=== PATIENT | female | born 1950 | race Caucasian/White ===

== ENCOUNTER 2016-09-28 06:36 | Inpatient (IN) | payer OTHER ==
[2016-09-27 13:38] VITALS: BMI 31.1
[2016-09-28] MEDS ORDERED: HEPARIN NA (PORCINE) 5,000 UNITS/ML 1ML VIAL ONE ×2 (07:29→10:06)
[2016-09-28] MEDS ORDERED: CEFAZOLIN 1 GM/D5W 50 ML IVPB ONE (08:16)
[2016-09-28] MEDS ORDERED: MIDAZOLAM HCL 2 MG/2 ML SINGLE DOSE VIAL ONE (08:17)
[2016-09-28] MEDS ORDERED: DESFLURANE GAS 240 ML BOTTLE IH ONE (08:27)
--- NOTE | 2016-09-28 08:27 | HP ---
Admitting History and Physical - Admission Chief Complaint: Left carotid stenosis History of Present Illness: 66 year old female with left carotid stenosis >80% by Duplex and CTA. No history of stroke TIA or TMB. Right carotid has no significant stenosis. History Source: Patient, Medical Record Limitations to Obtaining History: No Limitations - Past Medical History Cardiovascular: Yes: CAD, HTN, Hyperlipdemia ...: No - Smoking History Smoking history: Current every day smoker Aproximately how many cigarettes per day: 10 - Alcohol/Substance Use Hx Alcohol Use: No Home Medications - Allergies Allergies/Adverse Reactions: Allergies Allergy/AdvReac Type Severity Reaction Status Date / Time No Known Drug Allergies Allergy Verified 09/27/16 13:38 - Home Medications Home Medications: Ambulatory Orders Aspirin [Aspirin EC] 81 mg PO DAILY 09/27/16 Atorvastatin Ca [Lipitor] 20 mg PO DAILY 09/27/16 Metoprolol Succinate [Toprol Xl -] 25 mg PO DAILY 09/27/16 Family Disease History - Family Disease History Family History: Unremarkable Physical Examination Vital Signs: Vital Signs Temperature 97.9 F 09/28/16 07:13 Pulse Rate 67 09/28/16 07:13 Respiratory Rate 18 09/28/16 07:13 Blood Pressure 137/76 09/28/16 07:13 O2 Sat by Pulse Oximetry (%) 97 09/28/16 07:13 Constitutional: Yes: No Distress Eyes: Yes: EOM Intact HENT: Yes: WNL, Atraumatic Neck: Yes: Supple Cardiovascular: Yes: Regular Rate and Rhythm Respiratory: Yes: Regular Gastrointestinal: Yes: Normal Bowel Sounds, Soft Musculoskeletal: Yes: WNL Extremities: Yes: WNL Neurological: Yes: WNL, Alert, Oriented Problem List - Problems (1) Carotid stenosis, left Assessment/Plan: Asymptomatic left ICA stenosis, severe. After discussion of risks of stroke associated with carotid stenosis with patient and family, decision to proceed with carotid endarterectomy was made. Preop medical and cardiology clearance obtained. Code(s): I65.22 - OCCLUSION AND STENOSIS OF LEFT CAROTID ARTERY
[2016-09-28] MEDS ORDERED: PROPOFOL 20 ML ONE ×2 (08:36)
[2016-09-28] MEDS ORDERED: ROCURONIUM BROMIDE 50 MG/5 ML VIAL ONE (08:37)
[2016-09-28] MEDS ORDERED: ceFAZolin SODIUM 1 GM VIAL IVPB ONE (09:00)
[2016-09-28] MEDS ORDERED: HEPARIN NA (PORCINE) 5,000 UNITS/ML 1ML VIAL SQ ONE (09:15)
[2016-09-28] MEDS ORDERED: ENOXAPARIN NA (PORCINE) 40 MG/0.4 ML DISP.SYRIN SQ SCH (10:00)
[2016-09-28] MEDS ORDERED: ETOMIDATE 20 MG/10 ML AMPUL IVPUSH ONE (10:06)
[2016-09-28] MEDS ORDERED: LIDOCAINE HCL 2% (20ML MULTI-DOSE VIAL) NR ONE (10:06)
[2016-09-28] MEDS ORDERED: POVIDONE-IODINE OINTMENT 10% - 28.4 GM TUBE ONE (10:07)
[2016-09-28] MEDS ORDERED: NEOSTIGMINE METHYLSULFATE 0.5 MG/ML - 10 ML MDV ONE (10:27)
[2016-09-28] MEDS ORDERED: GLYCOPYRROLATE 0.2 MG/1 ML VIAL ONE (10:28)
[2016-09-28] MEDS ORDERED: PROTAMINE SULFATE 50 MG/5 ML VIAL ONE (10:30)
[2016-09-28] MEDS ORDERED: HYDROmorphone HCL CARPU-JECT 1 MG/1 ML DISP.SYRIN IVPB PRN (10:49)
[2016-09-28] MEDS ORDERED: HYDROmorphone HCL CARPU-JECT 2 MG/1 ML DISP.SYRIN IVPB PRN (10:49)
--- NOTE | 2016-09-28 10:52 | OP ---
Operative Note - Note: Operative Date: 09/28/16 Pre-Operative Diagnosis: Left carotid stenosis Operation: Left carotid endarterectomy Findings: Severe stenosis at origin left ICA > 80% Implants: Thin Dacron collagen patch Post-Operative Diagnosis: Same as Pre-op Surgeon: David Anna Corporate Responsibility Officer: Kyra Metzger Anesthesiologist/VACUUM CONDITIONER OPERATOR: Ami Puentes MD Anesthesia: General Specimens Removed: Left carotid plaque Estimated Blood Loss (mls): 50 Operative Report Dictated: Yes
[2016-09-28] MEDS ORDERED: ONDANSETRON 4 MG/2 ML VIAL ONE (10:54)
[2016-09-28] MEDS ORDERED: D5-1/2NS+20 MEQ KCL - 1,000 ML IV SCH (11:00)
--- NOTE | 2016-09-28 11:07 | SURG ---
Surgery Delivery Professional Note Delivery Professional: Kyra Metzger PA-C Date of Service: 09/28/16 Diagnosis: Left carotid stenosis Procedure: Left carotid endarterectomy I was present for the entirety of the operative procedure. For further detail, please refer to operative report. Visit type - Case Type Case Type: Scheduled Admission - New patient This patient is new to me today: Yes Date on this admission: 09/28/16
[2016-09-28] MEDS ORDERED: ONDANSETRON 4 MG/2 ML VIAL IVPUSH PRN (11:15)
[2016-09-28] MEDS ORDERED: LACTATED RINGERS SOLUTION 1,000 ML IV SCH (11:15)
--- NOTE | 2016-09-28 15:12 | OP ---
DATE OF OPERATION: 09/28/2016 SURGEON: David Anna MD DIRECTOR OF RECRUITMENT: JUDITH Rodriguez PROCEDURE: Left carotid endarterectomy. PREOPERATIVE DIAGNOSIS: Left carotid stenosis. POSTOPERATIVE DIAGNOSIS: Left carotid stenosis. ANESTHESIA: General. ANESTHESIOLOGIST: Ami Puentes MD OPERATIVE FINDINGS: There was severe stenosis at the origin of the left internal carotid artery with hemorrhagic plaque. DESCRIPTION OF PROCEDURE: Following routine patient identification with site and side verification, general anesthesia was induced. The left neck and chest were prepped with ChloraPrep. Time-out was performed. An incision was made along the anterior border of the left sternocleidomastoid over the carotid bifurcation, which had been mapped preoperatively with duplex imaging. The subcutaneous tissues and platysma muscle were divided with cautery. The external jugular vein was ligated between Vicryl ties and divided. The anterior border of the sternocleidomastoid was freed with cautery, and the muscle was retracted laterally. The internal jugular vein was dissected along its anterior border. Side branches were ligated with silk ties and divided. The vein was retracted laterally. The common carotid artery was mobilized at the base of the incision and secured with an umbilical tape. Distal dissection allowed identification of the carotid bifurcation. The external carotid was mobilized and secured with a vessel loop. The superior thyroid branch was individually secured. The hypoglossal nerve was identified and carefully protected. Crossing vessels were ligated with silk ties and divided. The nerve was reflected superiorly. The internal carotid was then exposed to a point distal to atherosclerotic plaque. The patient was systemically heparinized. The distal internal carotid was then secured with a vessel loop. Common internal and external branches were then occluded with vascular clamp and vessel loops. The was placed on the distal internal carotid artery. Arteriotomy was made from the common extending to the internal to a point distal to the atherosclerotic disease. Back bleeding from the distal internal carotid artery was pulsatile, and no shunt was employed. Endarterectomy was then performed with removal of plaque from the common internal and external branches. Loose media fibers were removed. The distal intima was adherent and required no tacking sutures. The arteriotomy was then closed with a thin, collagen-coated Dacron patch, which was sutured to the arterial page with running 6-0 Prolene suture. Prior to completion of the suture line, the arteries were allowed to back bleed and flush, and the lumen was filled with heparin solution. Suture line was completed and then flow was restored first to the external and then the internal carotid artery. Bleeding from the suture line was controlled with Surgicel, and the patient received protamine intravenously. Evaluation with the handheld Doppler revealed good flow in all branches with no evidence of technical defects. When hemostasis was achieved, the wound was irrigated and closed with interrupted sutures of 3-0 Vicryl in the platysma layer and skin edenilson. A sterile dressing was applied, and the patient was awakened from anesthesia and found to be in intact neurologic condition. She was transported to the recovery room. DAVID ANNA M.D. [id number]
--- NOTE | 2016-09-28 17:13 | SPA.POSTOP ---
- POST-OP NOTE POD #0 s/p Left CEA Patient resting comfortably. Pain management via prn meds. Denies n/v/f/c, CP or SOB. Last Vital Signs Temp Pulse Resp BP Pulse Ox 98 F 73 16 114/65 96 09/28/16 16:00 09/28/16 16:00 09/28/16 16:00 09/28/16 16:00 09/28/16 15:00 Physical Exam General: No acute distress. NECK: dressing c/d/i, no evidence of hematoma. Supple and soft. 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
[2016-09-28] MEDS: CEFAZOLIN (PRE-DOCKED) 50 ML IVPB SCH (17:42)
[2016-09-28] MEDS ORDERED: PNEUMOCOCCAL 23 VACCINE 0.5 ML VIAL IM ONE (18:00)
[2016-09-29] MEDS: CEFAZOLIN (PRE-DOCKED) 50 ML IVPB SCH (03:00)
[2016-09-29] MEDS ORDERED: CEFAZOLIN (PRE-DOCKED) 50 ML IVPB ONE (06:04)
[2016-09-29 06:28] LABS: MCH 30.5 pg (25.7-33.7); MCHC 32.8 g/dl (32.0-36.0); MEAN CELL VOLUME 92.8 fl (80-96); MEAN PLT VOLUME 9.3 fl (7.5-11.1); PLATELET COUNT 251 K/MM3 (134-434); RDW 13.7 % (11.6-15.6); WHITE BLOOD COUNT 11.9 K/mm3 (4.0-10.0)
[2016-09-29 06:47] LABS: CALCIUM 8.7 mg/dL (8.5-10.1); COCKROFT - GAULT 138.363; CREATININE 0.5 mg/dL (0.55-1.02)
[2016-09-29] MEDS ORDERED: PNEUMOC 13-VAL CONJ-DIP CRM/PF 0.5 ML DISP.SYRIN IM ONE (07:11)
--- NOTE | 2016-09-29 08:35 | PN ---
Progress Note (short form) - Note Progress Note: POD 1 VSS Neck dry, no swelling Stable neuro exam OK for discharge today. ASA/Plavix Office 1 week. <David Anna - Last Filed: 09/29/16 09:04> - Note Progress Note: Vascular Surgery- Dr. Anna Patient seen and examined. Patient is doing well, admits some pain in neck, but pain is controlled. She has been tolerating her diet and urinating without issue. Denies fever, chills, nausea, vomiting, CP, SOB. Last Vital Signs Temp Pulse Resp BP Pulse Ox 98.2 F 57 L 15 131/57 100 09/29/16 06:00 09/29/16 06:00 09/29/16 06:00 09/29/16 06:00 09/28/16 21:00 CBC, BMP 09/29/16 05:20 09/29/16 05:20 Exam: Gen: NAD Neck: Soft, clean, dry, intact, no evidence of hematoma Neuro: UE strength, movement equal bilat., tongue midline <Kyra Metzger - Last Filed: 09/29/16 12:10> Problem List - Problems (1) Carotid stenosis, left Code(s): I65.22 - OCCLUSION AND STENOSIS OF LEFT CAROTID ARTERY <David Anna - Last Filed: 09/29/16 09:04> - Problems (1) Carotid stenosis, left Assessment/Plan: POD#1 s/p left carotid endarterectomy Pain controlled Regular diet Discharge home today Keep wound clean and dry, may shower Monday Follow-up with Dr. Anna next week May use Tylenol as needed for pain Continue ASA/Plavix Code(s): I65.22 - OCCLUSION AND STENOSIS OF LEFT CAROTID ARTERY <Kyra Metzger - Last Filed: 09/29/16 12:10>
[2016-09-29 09:44] VITALS: BP 128/54
[2016-09-29 09:46] VITALS: PULSE 60; TEMP 98.8
[2016-09-29] MEDS ORDERED: CLOPIDOGREL BISULFATE 75 MG TABLET (FP) PO SCH (10:00)
[2016-09-29] MEDS ORDERED: ASPIRIN COATED 81 MG TABLET.EC PO SCH (10:00)
[2016-09-29] MEDS ORDERED: ENOXAPARIN NA (PORCINE) 40 MG/0.4 ML DISP.SYRIN SQ SCH (10:00)
[2016-09-29] MEDS ORDERED: ATORVASTATIN CA 20 MG TABLET (FP) PO SCH (10:00)
[2016-09-29] MEDS ORDERED: METOPROLOL SUCCINATE 25 MG TAB.SR.24H (FP) PO SCH (10:00)
--- NOTE | 2016-09-29 13:45 | PATH ---
Surgical Pathology Report Patient Name: VICENTE BHAT [facility]. Rec. #: [id number] /Age/Gender: 1950 (Age: 66) / F Account: [id number] Location: ICU SOFTWARE QUALITY ENGINEER Taken: 09/28/2016 Received: 09/28/2016 Reported: 09/29/2016 Physicians: David Anna M.D. Specimen(s) Received PLAQUE LEFT CAROTID Clinical History Left carotid stenosis Final Diagnosis PLAQUE, LEFT CAROTID, ENDARTERECTOMY: CALCIFIED INTIMAL ATHEROSCLEROTIC PLAQUE. Electronically Signed Alan Genao M.D. Gross Description Received in formalin labeled "plaque left carotid," is a 2.8 x 0.8 x 0.6 cm tran-yellow, irregular portion of focally calcified plaque. In [place] sections are submitted in one cassette, following decalcification. /09/28/201609/28/2016
== END 2016-09-29 11:37 | disposition home or self-care (01) | DRG 24 ==
LOC: JSAMEDAYSX 06:36 → JICU 13:12
PROVIDERS: ADMIT Surgery; ATTEND Surgery
PROC: 03CL0Z6 (ICD-10-PCS; principal; 2016-09-28 08:00)
DX: I65.22 Occlusion and stenosis of left carotid artery (principal); I10 Essential (primary) hypertension; E78.5 Hyperlipidemia, unspecified; F17.210 Nicotine dependence, cigarettes, uncomplicated
CPT/HCPCS: 36415; 80048; 85027; 86850; 86900; 86901; 88304-TC; 88311-TC; 90732; 94760; G0009; J1644